=== PATIENT | female | born 1955 | race Caucasian/White ===

== ENCOUNTER → 2019-07-18 | Outpatient (CLI) | payer MEDICARE ==
[2015-01-19 13:54] VITALS: BP 119/65
[~2019-07-18] MED LIST: ASPI-482 PO; CYCL1DRO EACHEYE; DICL50PO5 PO; FROV2.5T4 PO; HYDR-2145 PO; LISI1TAB20 PO; METO-247 PO; OMEP40CA45 PO; PYRI60TA2 PO; SUMA100T4 PO; TRAZ-123 PO
--- NOTE | 2019-07-18 14:49 | KCIC ---
MR of the right elbow HISTORY: Right elbow pain. Lateral epicondylitis since April. TECHNIQUE: Routine multiplanar sequences are obtained. FINDINGS: The biceps and brachialis tendons are intact. Triceps tendon is intact. Common flexor tendon demonstrates mild signal compatible with tendinosis but no high-grade tear. The ulnar collateral ligament is intact. Common extensor tendinosis with mild edema signal. The lateral collateral ligament complex appears intact. No significant joint effusion. No acute fracture. No aggressive bone destruction. No acute soft tissue abnormality. The ulnar nerve is mildly hyperintense throughout its length. The nerve is also borderline prominent in caliber at the level of the humeral epicondyle. IMPRESSION: 1. Mild common flexor tendinosis. 2. Mild common extensor tendinosis. 3. Ulnar nerve demonstrates mild signal and borderline thickening, correlate for ulnar neuritis. Electronically signed by: Michael Mccall MD (07/18/2019 2:46 PM) [id number]
== END | disposition home or self-care (01) ==
LOC: KCIC MRI 12:04
PROVIDERS: ATTEND Orthopaedic Surgery
DX: M77.11 Lateral epicondylitis, right elbow (principal)
CPT/HCPCS: 73221

== ENCOUNTER → 2020-01-07 | Outpatient (CLI) | payer MEDICARE ==
[2015-01-19 13:54] VITALS: BP 119/65
--- NOTE | 2020-01-07 15:28 | KCIC ---
EXAM: Brain MRI without contrast. HISTORY: Migraine. Right vision changes. TECHNIQUE: Multiplanar, multisequence magnetic resonance imaging of the brain was performed without contrast. COMPARISON: None. FINDINGS: There is a tiny focus of slight increased signal on diffusion-weighted images within the left occipital white matter, likely due to T2 shine through artifact. No convincing acute or subacute infarct is seen. There is no mass effect or midline shift. There is no hydrocephalus. There are scattered focal areas of signal change within the cerebral white matter, a nonspecific finding which is most commonly due to chronic small vessel disease in a patient of this age. There is evidence of lens surgery. No orbital mass is seen. The mastoid air cells and paranasal sinuses are clear. There are normal flow voids within the cerebral vessels. There is no suspicious calvarial lesion. IMPRESSION: 1. No acute intracranial finding. 2. Scattered focal areas of signal change within the cerebral white matter. This is most commonly due to chronic small vessel disease in patients of this age. Given the lesion distribution and configuration, the possibility of superimposed areas of signal change due to chronic demyelinating disease is not excluded. Electronically signed by: Sarah Anderson MD (01/07/2020 3:25 PM) [facility]
--- NOTE | 2020-01-07 16:55 | KCIC ---
DOPPLER CAROTID BILAT History: Reason: MIGRAINE; PTOSIS OF LT EYELID; LT RETINAL ARTERY OCCLUSION / Spl. Instructions: / History: COMPARISON: None Technique: Duplex sonography of the cervical portion of both carotid arteries was performed. Real-time grayscale, color flow Doppler, and Doppler spectral waveform analysis is performed. RS Compliance Statement - Stenosis calculations for CT, MR and conventional angiography are based upon measurement of the distal ICA diameter in accordance with the NASCET methodology. Stenosis calculations for carotid ultrasound studies are derived from validated velocity criteria which are known to correlate with the NASCET methodology. Findings: Right side: Peak systolic flow velocity of the CCA is 135 cm/sec. Peak systolic flow velocity of the ICA is 89 cm/sec. The ICA/CCA ratio is 0.66. Peak end diastolic flow velocity of the ICA is 29 cm/sec. The peak systolic velocity of the ECA is 90 cm/sec. No significant plaque formation is identified. Left side: Peak systolic flow velocity of the CCA is 123 cm/sec. Peak systolic flow velocity of the ICA is 74 cm/sec. The ICA/CCA ratio is 0.6. Peak end diastolic flow velocity of the ICA is 34 cm/sec. Peak systolic flow velocity of the ECA is 77 cm/sec. No significant plaque formation is identified. Vertebral arteries: Bilateral vertebral arteries demonstrate antegrade flow. IMPRESSION: 1. No hemodynamically significant internal carotid artery stenosis. Electronically signed by: Dominick Avila DO (01/07/2020 4:52 PM) [facility]
== END ==
LOC: KCIC MRI 14:12
PROVIDERS: ATTEND Psychiatry & Neurology Neurology with Special Qualifications in Child Neurology
DX: I73.9 Peripheral vascular disease, unspecified (principal); G43.909 Migraine, unspecified, not intractable, without status migrainosus; H02.402 Unspecified ptosis of left eyelid; H34.9 Unspecified retinal vascular occlusion; H34.232 Retinal artery branch occlusion, left eye
CPT/HCPCS: 70551; 93880

== ENCOUNTER → 2020-01-16 | Outpatient (CLI) | payer MEDICARE, OTHER ==
[2015-01-19 13:54] VITALS: BP 119/65
--- NOTE | 2020-01-17 11:56 | CARD ---
MR#: [id number] Date of Study: 01/16/2020 Ordering Physician: DA BENITES, Referring Physician: DA BENITES, Tech: Nat Che RDCS APPROVED REPORT EXAM: Two-dimensional and M-mode echocardiogram with Doppler and color Doppler. Other Information Quality : Good INDICATION Migraines Echo Enhancing Agent Agent/Amount Used: Agitated Saline 8mL 2D DIMENSIONS RVDd2.4 (2.9-3.5cm)Left Atrium(2D)3.4 (1.6-4.0cm) IVSd1.1 (0.7-1.1cm)Aortic Root(2D)2.6 (2.0-3.7cm) LVDd4.9 (3.9-5.9cm)LVOT Diameter2.1 (1.8-2.4cm) PWd0.8 (0.7-1.1cm)LVDs3.6 (2.5-4.0cm) FS (%) 26.6 %SV57.5 ml LVEF(%)55.0 (>50%) Aortic Valve AoV Peak Antony.134.9cm/sAoV VTI25.1cm AO Peak GR.7.3mmHgLVOT Peak Antony.114.9cm/s AO Mean GR.3mmHgAVA (VMAX)2.83cm2 DONALD (VTI)3.40cm2 Mitral Valve MV E Ohratyor27.1cm/sMV DECEL [id number] MV A Hozaqlnz182.1cm/sE/A Ratio0.9 Tricuspid Valve TR P. Lojkkrfx042fk/sRAP GCOXUPHG3pcJu TR Peak Gr.09foEdHJDO35xwFx Pulmonary Vein S1 Orusgwyz53.9cm/sD2 Yyffwusr97.1cm/s LEFT VENTRICLE The left ventricle is normal size. There is normal left ventricular wall thickness. The left ventricu lar systolic function is normal and the ejection fraction is within normal range. The Ejection Fracti on is 55-60%. There is normal LV segmental wall motion. Transmitral Doppler flow pattern is Grade I-a bnormal relaxation pattern. RIGHT VENTRICLE The right ventricle is normal size. The right ventricular systolic function is normal. ATRIA The left atrium size is normal. The right atrium size is normal. The interatrial septum is intact wit h no evidence for an atrial septal defect or patent foramen ovale as noted on 2-D or Doppler imaging. Injection of bubbles documented no interatrial shunt. AORTIC VALVE The aortic valve is calcified but opens well. Doppler and Color Flow revealed no significant aortic r egurgitation. There is no significant aortic valvular stenosis. MITRAL VALVE The mitral valve is normal in structure and function. There is no evidence of mitral valve prolapse. There is no mitral valve stenosis. Doppler and Color-flow revealed trace to mild mitral regurgitation . TRICUSPID VALVE The tricuspid valve is normal in structure and function. Doppler and Color Flow revealed mild tricusp id regurgitation. The PA pressure was estimated at 29 mmHg. There is no tricuspid valve stenosis. PULMONIC VALVE The pulmonic valve is not well visualized. Doppler and Color Flow revealed no pulmonic valvular regur gitation. There is no pulmonic valvular stenosis. GREAT VESSELS The aortic root is normal in size. The ascending aorta is normal in size. The IVC is normal in size a nd collapses >50% with inspiration. PERICARDIAL EFFUSION There is no evidence of significant pericardial effusion. Critical Notification Critical Value: No <Conclusion> The left ventricle is normal size. The left ventricular systolic function is normal and the ejection fraction is within normal range. The Ejection Fraction is 55-60%. The interatrial septum is intact with no evidence for an atrial septal defect or patent foramen ovale as noted on 2-D or Doppler imaging. Injection of bubbles documented no interatrial shunt. Doppler and Color Flow revealed no significant aortic regurgitation. There is no significant aortic valvular stenosis. Doppler and Color-flow revealed trace to mild mitral regurgitation. Doppler and Color Flow revealed mild tricuspid regurgitation. The PA pressure was estimated at 29 mmHg. Signed by : Barber Garzon MD Electronically Approved : 01/17/2020 11:56:17
== END | disposition home or self-care (01) ==
LOC: ECHO 14:43
PROVIDERS: ATTEND Psychiatry & Neurology Neurology with Special Qualifications in Child Neurology
DX: I08.3 Combined rheumatic disorders of mitral, aortic and tricuspid valves (principal); H02.402 Unspecified ptosis of left eyelid; H34.232 Retinal artery branch occlusion, left eye; G43.009 Migraine without aura, not intractable, without status migrainosus
CPT/HCPCS: 93306